=== PATIENT | female | born 1930 | race Caucasian/White ===

== ENCOUNTER 2017-05-05 14:21 | Inpatient (IN) ==
--- NOTE | 2017-05-05 14:48 | Diag Imaging Result Doc PS360 ---
EXAM: CHEST-PORTABLE HISTORY: seizure TECHNIQUE: Portable upright AP COMPARISON: 05/09/2016 FINDINGS: The lungs are well expanded. The heart is not enlarged. Mild increased interstitial markings may be fibrosis. No consolidation. No pleural effusions identified. Old injury to the left clavicle. IMPRESSION: Mild increased interstitial markings believed to be fibrosis Electronically signed by Fausto Young 05/05/2017 2:46 PM
[2017-05-05 14:59] LABS: BASO% 0.5 % (0.0-0.8); EOS# 0.02 X1000 (0.0-0.7); EOS% 0.5 % (0.0-10.0); HEMATOCRIT 33.3 % (37.0-47.0); LYMPH# 1.73 X1000 (1.2-3.4); LYMPH% 46.1 % (20.5-51.1); MANUAL DIFF NEEDED? NO; MCV 96.8 FL (81-99); MONO# 0.54 X1000 (0.11-0.59); MONO% 14.4 % (1.7-9.3); MPV 11.3 FL (7.4-10.4); NEUT% 38.5 % (42.2-75.2); PLT 281 X1000 (130-400); RBC 3.44 XMIL (4.2-5.4)
[2017-05-05 15:01] LABS: URINE MICRO REVIEW NEEDED? NO; URINE SOURCE CATH
[2017-05-05 15:06] LABS: INR 1.02; PROTIME 10.7 Seconds (9.2-11.7)
[2017-05-05 15:07] LABS: BILIRUBIN URINE NEGATIVE (NEGATIVE); BLOOD URINE NEGATIVE (NEGATIVE); COLOR YELLOW; GLUCOSE URINE NEGATIVE (NEGATIVE); LEUKOCYTES URINE SMALL (NEGATIVE); NITRITE URINE POSITIVE (NEGATIVE); PH URINE 6.5; PROTEIN URINE TRACE mg/dL (NEGATIVE); SP GRAVITY URINE 1.018; TURBIDITY URINE HAZY (CLEAR); UR EPITHELIAL CELLS <10 /HPF (<10); URINE BACTERIA 4+ /HPF; URINE RBC <10 /HPF (<10); URINE WBC <10 /HPF (<10); UROBILINOGEN URINE NORMAL (NORMAL)
[2017-05-05 15:14] LABS: ALBUMIN 4.4 g/dL (3.5-5.0); CALCIUM 9.5 mg/dL (8.8-10.2); MAGNESIUM 1.8 mg/dL (1.5-2.7); POTASSIUM 3.9 mmol/L (3.5-5.1); TOTAL BILIRUBIN 0.35 mg/dL (0.20-1.00); TOTAL PROTEIN 7.8 g/dL (6.3-8.3)
[2017-05-05 15:17] LABS: PTT 18.6 Seconds (22.0-36.0)
--- NOTE | 2017-05-05 15:45 | Diag Imaging Result Doc PS360 ---
EXAM : HEAD/C-SPINE W/O CONTRAST HISTORY: head injury/pain TECHNIQUE: CT brain without. CT cervical spine without. COMPARISON: Brain is compared 05/09/2016 FINDINGS: Head: No parenchymal hemorrhage. No epidural or subdural hematoma. No subarachnoid hemorrhage. No mass identified on this noncontrasted exam. No hydrocephalus. There are chronic microvascular ischemic changes in addition to atrophy. No sinus opacification. Cervical spine: There is good alignment to the cervical spine. No precervical soft tissue swelling. No subluxation. No fracture. Mild degenerative changes. The bones are osteopenic. IMPRESSION: Head: No hemorrhage. No injury. Cervical spine: No acute fracture. Electronically signed by Fausto Young 05/05/2017 3:42 PM
--- NOTE | 2017-05-05 17:54 | PROVIDER DOCUMENTATION ---
This chart was entered by Yadi Hernandez Scribe, acting as scribe for Babatunde Monroy MD. HPI-Neurological Disorder - General Stated Complaint: seizure Time Seen by Provider: 05/05/17 14:27 Source: patient Allergies/Adverse Reactions: Patient Allergies Allergy/AdvReac Type Severity Reaction Status Date / Time No Known Allergies Allergy Verified 05/05/17 14:40 Home Medications: Home Medication List Medication Instructions Recorded Confirmed Last Taken Type NK [No Home Medications] 05/05/17 05/05/17 Unknown History - History of Present Illness-Neuro Nature of Presenting Problem: 86 yo F presents to the ER with complaint of possible seizure like activity. Pt does not remember anything from incident. Pt states she has a hx of " passing out". Only complaint pt has is neck pain. Witnessed seizure like activity, bystanders report pt was post-ictal for 6-7 minutes. Onset/Duration: reports: just prior to arrival Context: reports: seizure activity Associated Symptoms: reports: seizures - Seizure First time to have a seizure?: Yes Witnessed seizure?: Yes Post-ictal Symptoms: reports: confusion Review of Systems - Adult - REVIEW OF SYSTEMS - ADULT Constitutional: denies: chills, fever Eyes: reports: no symptoms reported Ears, Nose, Mouth & Throat: reports: no symptoms reported Cardiovascular: denies: chest pain, palpitations Respiratory: denies: cough, shortness of breath Gastrointestinal: denies: diarrhea, nausea, vomiting Genitourinary: reports: no symptoms reported Musculoskeletal: reports: joint pain, neck pain Integumentary: reports: no symptoms reported Neurological: reports: seizure. denies: dizziness/vertigo Psychiatric: reports: no symptoms reported Endocrine: reports: no symptoms reported Hematologic/Lymphatic: reports: no symptoms reported Allergic/Immunologic: reports: no symptoms reported All Other Systems: Reviewed and Negative Past History - Adult - PAST MEDICAL HISTORY-ADULT Review of Records: reports: Nursing Assessment Review, Medications Reviewed Cardiovascular: reports: HTN - IMMUNIZATION STATUS Childhood Immunizations: See Nurse Assessment Flu Vaccine: See Nurse Assessment Physical Exam- Neurological - Physical Exam-Neuro Initial Vital Signs Reviewed: Yes General Appearance: alert, no apparent distress Eye Exam: bilateral eye: normal inspection, PERRL, EOMI HENMT: normocephalic/atraumatic, normal ENT inspection, TMs normal, pharynx normal Head Injury: no evidence of injury. 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 Exam: normal hearing, normal speech, PERRL Motor/Sensory: no motor deficit, no sensory deficit, no pronator drift Neurologic: grossly normal, no motor/sensory deficits Integumentary: normal color, warm/dry Psych/Mental Status: normal mood/affect, normal thought content, normal thought process, oriented x 3 Progress - PLAN OF CARE/RESULTS Progress/Plan/Lab Results: Vital Signs - 8 hr 05/05/17 14:31 05/05/17 15:49 05/05/17 17:23 Temperature 97.8 F Pulse Rate 72 80 75 Respiratory Rate 15 15 28 H Blood Pressure 121/44 129/62 144/60 O2 Sat by Pulse Oximetry 98 97 93 L Laboratory Results - last 24 hr 05/05/17 05/05/17 05/05/17 14:34 14:34 14:34 WBC 3.75 L RBC 3.44 L Hgb 11.0 L Hct 33.3 L MCV 96.8 MCH 32.0 H MCHC 33.0 RDW Std Deviation 13.4 Plt Count 281 MPV 11.3 H Neut % (Auto) 38.5 L Lymph % (Auto) 46.1 Foard % (Auto) 14.4 H Eos % (Auto) 0.5 Baso % (Auto) 0.5 Neut # (Auto) 1.44 Lymph # (Auto) 1.73 Foard # (Auto) 0.54 Eos # (Auto) 0.02 Baso # (Auto) 0.02 PT INR PTT (Actin FS) D-Dimer 1.59 H Sodium 135 L Potassium 3.9 Chloride 95 L Carbon Dioxide 26 Anion Gap 14 BUN 27 H Creatinine 1.3 H Estimated GFR/1.73 m2 39 BUN/Creatinine Ratio 21 Glucose 120 H Calculated Osmolality 276 Calcium 9.5 Magnesium 1.8 Total Bilirubin 0.35 AST 20 ALT 16 Alkaline Phosphatase 49 Creatine Kinase 144 Troponin T Hhw-I-Ygzmyyedksg Pept Total Protein 7.8 Albumin 4.4 Globulin 3.4 Albumin/Globulin Ratio 1.3 Urine Source Urine Color Urine Turbidity Urine pH Ur Specific [place] Urine Protein Ur Glucose (Stick) Ur Ketones (Stick) Urine Blood Urine Nitrite Urine Bilirubin Urobilinogen Dipstick Urine Leukocytes Urine WBC (Auto) Urine RBC (Auto) U Epithel Cells (Auto) Urine Bacteria (Auto) 05/05/17 05/05/17 05/05/17 14:34 14:34 14:34 WBC RBC Hgb Hct MCV MCH MCHC RDW Std Deviation Plt Count MPV Neut % (Auto) Lymph % (Auto) Foard % (Auto) Eos % (Auto) Baso % (Auto) Neut # (Auto) Lymph # (Auto) Foard # (Auto) Eos # (Auto) Baso # (Auto) PT 10.7 INR 1.02 PTT (Actin FS) 18.6 L D-Dimer Sodium Potassium Chloride Carbon Dioxide Anion Gap BUN Creatinine Estimated GFR/1.73 m2 BUN/Creatinine Ratio Glucose Calculated Osmolality Calcium Magnesium Total Bilirubin AST ALT Alkaline Phosphatase Creatine Kinase Troponin T < 0.010 Xsq-Y-Qxwjalbiixs Pept 154 Total Protein Albumin Globulin Albumin/Globulin Ratio Urine Source Urine Color Urine Turbidity Urine pH Ur Specific [place] Urine Protein Ur Glucose (Stick) Ur Ketones (Stick) Urine Blood Urine Nitrite Urine Bilirubin Urobilinogen Dipstick Urine Leukocytes Urine WBC (Auto) Urine RBC (Auto) U Epithel Cells (Auto) Urine Bacteria (Auto) 05/05/17 14:51 WBC RBC Hgb Hct MCV MCH MCHC RDW Std Deviation Plt Count MPV Neut % (Auto) Lymph % (Auto) [place]oard % (Auto) Eos % (Auto) Baso % (Auto) Neut # (Auto) Lymph # (Auto) [place]oard # (Auto) Eos # (Auto) Baso # (Auto) PT INR PTT (Actin FS) D-Dimer Sodium Potassium Chloride Carbon Dioxide Anion Gap BUN Creatinine Estimated GFR/1.73 m2 BUN/Creatinine Ratio Glucose Calculated Osmolality Calcium Magnesium Total Bilirubin AST ALT Alkaline Phosphatase Creatine Kinase Troponin T Fwt-G-Lukfe[place]agup Pept Total Protein Albumin Globulin Albumin/Globulin Ratio Urine Source CATH Urine Color YELLOW Urine Turbidity HAZY Urine pH 6.5 Ur Specific [place] 1.018 Urine Protein TRACE A Ur Glucose (Stick) NEGATIVE Ur Ketones (Stick) NEGATIVE Urine Blood NEGATIVE Urine Nitrite POSITIVE A Urine Bilirubin NEGATIVE Urobilinogen Dipstick NORMAL Urine Leukocytes SMALL A Urine WBC (Auto) <10 Urine RBC (Auto) <10 U Epithel Cells (Auto) <10 Urine Bacteria (Auto) 4+ Orders Category Date Time Status Admit - [facility] Routine AdmDCTranf 05/05/17 17:48 Ordered Activity - Bed Rest with BRP ORDERED Care 05/05/17 17:48 Active Call Admitting on Arrival AT ADMISSION Care 05/05/17 17:48 Active Cardiac Monitoring DIRECTED Care 05/05/17 14:26 Active Neurological Check Q4H Care 05/05/17 17:49 Active Saline Loc DIRECTED Care 05/05/17 17:48 Active Saline Loc NOW Care 05/05/17 14:26 Active Vital Signs Order ROUTINE Care 05/05/17 17:48 Active Z-Document. for Tele Applied ORDERED Care 05/05/17 17:49 Active Heart Healthy Diet Diet 05/05/17 17:49 Active Regular Diet Diet 05/05/17 17:20 Completed ANGIOGRAM/PULMONARY ARTERIES [CT] Stat Exams 05/05/17 15:56 Ordered CHEST-PORTABLE [RAD] Stat Exams 05/05/17 14:34 Completed HEAD/C-SPINE W/O CONTRAST [CT] Stat Exams 05/05/17 14:27 Completed CBC WITH ELECTRONIC DIFF [HEME] Stat Lab 05/05/17 14:34 Completed CK PROFILE [SP CHEM] Stat Lab 05/05/17 14:34 Completed COMPREHENSIVE METABOLIC PANEL [CHEM] Stat Lab 05/05/17 14:34 Completed D-DIMER [CHEM] Stat Lab 05/05/17 14:34 Completed MAGNESIUM [CHEM] Stat Lab 05/05/17 14:34 Completed PRO B-NATRIURETIC PEPTIDE Stat Lab 05/05/17 14:34 Completed PROTIME WITH INR [COAG] Stat Lab 05/05/17 14:34 Completed PTT [COAG] Stat Lab 05/05/17 14:34 Completed TROPONIN T Stat Lab 05/05/17 14:34 Completed URINALYSIS [URINALYSIS] Stat Lab 05/05/17 14:51 Completed Oxygen Device Routine Oth 05/05/17 17:49 Active Telemetry [OM.EQ] Routine Oth 05/05/17 17:48 Active EKG [EKG] Stat Ther 05/05/17 14:26 Ordered Transfer/Admit Order [TRANSFER] Routine Transfer 05/05/17 17:50 Ordered Laboratory Tests 05/05/17 05/05/17 05/05/17 14:34 14:34 14:34 WBC 3.75 L RBC 3.44 L Hgb 11.0 L Hct 33.3 L MCV 96.8 MCH 32.0 H MCHC 33.0 RDW Std Deviation 13.4 Plt Count 281 MPV 11.3 H Neut % (Auto) 38.5 L Lymph % (Auto) 46.1 Foard % (Auto) 14.4 H Eos % (Auto) 0.5 Baso % (Auto) 0.5 Neut # (Auto) 1.44 Lymph # (Auto) 1.73 Foard # (Auto) 0.54 Eos # (Auto) 0.02 Baso # (Auto) 0.02 PT INR PTT (Actin FS) D-Dimer 1.59 H Sodium 135 L Potassium 3.9 Chloride 95 L Carbon Dioxide 26 Anion Gap 14 BUN 27 H Creatinine 1.3 H Estimated GFR/1.73 m2 39 BUN/Creatinine Ratio 21 Glucose 120 H Calculated Osmolality 276 Calcium 9.5 Magnesium 1.8 Total Bilirubin 0.35 AST 20 ALT 16 Alkaline Phosphatase 49 Creatine Kinase 144 Troponin T Sau-Z-Htfjjmashtv Pept Total Protein 7.8 Albumin 4.4 Globulin 3.4 Albumin/Globulin Ratio 1.3 Urine Source Urine Color Urine Turbidity Urine pH Ur Specific [place] Urine Protein Ur Glucose (Stick) Ur Ketones (Stick) Urine Blood Urine Nitrite Urine Bilirubin Urobilinogen Dipstick Urine Leukocytes Urine WBC (Auto) Urine RBC (Auto) U Epithel Cells (Auto) Urine Bacteria (Auto) 05/05/17 05/05/17 05/05/17 14:34 14:34 14:34 WBC RBC Hgb Hct MCV MCH MCHC RDW Std Deviation Plt Count MPV Neut % (Auto) Lymph % (Auto) Foard % (Auto) Eos % (Auto) Baso % (Auto) Neut # (Auto) Lymph # (Auto) [place]oard # (Auto) Eos # (Auto) Baso # (Auto) PT 10.7 INR 1.02 PTT (Actin FS) 18.6 L D-Dimer Sodium Potassium Chloride Carbon Dioxide Anion Gap BUN Creatinine Estimated GFR/1.73 m2 BUN/Creatinine Ratio Glucose Calculated Osmolality Calcium Magnesium Total Bilirubin AST ALT Alkaline Phosphatase Creatine Kinase Troponin T < 0.010 Eut-W-Egpuqnnwxvr Pept 154 Total Protein Albumin Globulin Albumin/Globulin Ratio Urine Source Urine Color Urine Turbidity Urine pH Ur Specific [place] Urine Protein Ur Glucose (Stick) Ur Ketones (Stick) Urine Blood Urine Nitrite Urine Bilirubin Urobilinogen Dipstick Urine Leukocytes Urine WBC (Auto) Urine RBC (Auto) U Epithel Cells (Auto) Urine Bacteria (Auto) 05/05/17 14:51 WBC RBC Hgb Hct MCV MCH MCHC RDW Std Deviation Plt Count MPV Neut % (Auto) Lymph % (Auto) [place]oard % (Auto) Eos % (Auto) Baso % (Auto) Neut # (Auto) Lymph # (Auto) [place]oard # (Auto) Eos # (Auto) Baso # (Auto) PT INR PTT (Actin FS) D-Dimer Sodium Potassium Chloride Carbon Dioxide Anion Gap BUN Creatinine Estimated GFR/1.73 m2 BUN/Creatinine Ratio Glucose Calculated Osmolality Calcium Magnesium Total Bilirubin AST ALT Alkaline Phosphatase Creatine Kinase Troponin T Fbd-J-Lfrxefpgblp Pept Total Protein Albumin Globulin Albumin/Globulin Ratio Urine Source CATH Urine Color YELLOW Urine Turbidity HAZY Urine pH 6.5 Ur Specific [place] 1.018 Urine Protein TRACE A Ur Glucose (Stick) NEGATIVE Ur Ketones (Stick) NEGATIVE Urine Blood NEGATIVE Urine Nitrite POSITIVE A Urine Bilirubin NEGATIVE Urobilinogen Dipstick NORMAL Urine Leukocytes SMALL A Urine WBC (Auto) <10 Urine RBC (Auto) <10 U Epithel Cells (Auto) <10 Urine Bacteria (Auto) 4+ Result Diagrams: 05/05/17 14:34 05/05/17 14:34 - EKG 1 Time of EKG reading by physician:: 15:21 EKG Read and Signed by:: Ramiro Crenshaw EKG Interpretation (*Must complete 3 of following elements*): Abnormal Rate: 70 Rhythm: sinus rhythm with marked arrhythmia with 1st degree AV with PVCs [place]: left QRS: normal AR Interval: normal ST Wave: normal - XRAY 1 XRAY Study: Chest Impression: See EMR Report (mild increased interstitial markins believed to be fibrosis, per radiologist) - CT/MRI 1 CT Study: Cervical Spine, Head Impression: Normal (Head: no hemorrhage, no injury C-spine: no acute fracture. Per radiologist) - CONSULTS/PCP/HOSPITALIST Notification #1 *Consult/PCP/Hospitalist*: Dr macdonald Time Discussed: 17:51 Consult Disposition: Will see in ED - CHANGE OF SHIFT REPORT (ED Provider) Items Pending: CT/MRI Results (CTA) Departure - Departure Date of Disposition Decision: 05/05/17 Time of Disposition Decision: 17:53 DIAGNOSIS: Syncopal seizure Disposition: ADMITTED INPATIENT 09 Certified Medical Emergency: Emergent Condition: Fair Referrals and Follow-Ups: Nica Givens MD [Primary Care Provider] - - Critical Care Note This patient required my direct & personal management of CC.: No This chart was documented by the indicated scribe, (Yadi Hernandez Scribe) and accurately reflects the services I performed and decisions made by me, Babatunde Monroy MD, as attested by the provider's signature.
[2017-05-05] MEDS ORDERED: NS + KCL 20 MEQ 1,000 ML IV ONE (18:27)
--- NOTE | 2017-05-05 18:57 | Diag Imaging Result Doc PS360 ---
EXAM: ANGIOGRAM/PULMONARY ARTERIES HISTORY: difficulty breathing, left arm swollen TECHNIQUE: CT chest with contrast. Coronal MIPS obtained. Dose reduction protocol. COMPARISON: None. FINDINGS: No pleural effusions. Heart is not enlarged. No thoracic aortic aneurysm or dissection. Normal opacification of the pulmonary arteries and their major branches. There are calcified mediastinal nodes. There is scarring in the apices. A small amount of bronchiectasis is found in the apices. No consolidation. There are several lower thoracic compression fractures. These may not be acute. IMPRESSION: 1.No pulmonary emboli 2.No acute pneumonia 3.Limited images through the upper abdomen reveal a nonspecific hypodense area in the mid liver measuring 1.4 cm. Electronically signed by Fausto Young 05/05/2017 6:54 PM
--- NOTE | 2017-05-05 21:23 | HISTORY AND PHYSICAL ---
CHIEF COMPLAINT: Altered mental status. Syncope. HISTORY OF PRESENT ILLNESS: Ms. Tolbert, 86-year-old white female patient, patient was at her apartment with her [id number]. They both were talking. According to [id number] patient was complaining of headache which was moderate. Patient turned pale. Her eyes rolled back. The patient had a syncopal episode. There was some jerking movement which lasted for few minutes. The patient did pass out for a few minutes and there was possible postictal phase. EMS was called and patient was brought to emergency room. The patient had similar episode 2-3 times in last few weeks. In the patient claims she does not remember a whole lot about those episode. Her headache did not last long. The patient claims her headache was significant today. She did have mild nausea but no vomiting. No diplopia. No typical chest pain, palpitation, orthopnea or PND. No focal numbness, tingling, weakness. When I evaluated the patient, the patient was in her baseline state. No runny nose, stuffy nose, sinus drainage. According to daughter, she does have headache especially when she does not eat her meal or skips her meal which happened today. No neck stiffness. No history of jaw claudication. No dysuria or hematuria. The patient does have polyuria, polydipsia. No major weight loss or weight gain. No heat or cold intolerance. No focal numbness, tingling, weakness. The patient does have arthritic pain in the knee and in the back. The patient does have problem with recent memory. The patient is on Aricept. No further history available at this time. ALLERGIES: No known drug allergy. HOME MEDICATIONS: Includes Aricept 10 mg p.o. daily, the patient is on trazodone, blood pressure medication. I do not have updated list at this time. PAST MEDICAL HISTORY: Significant for hypertension, osteoarthritis, mild memory impairment, the patient had hysterectomy, syncopal episode. PERSONAL HISTORY: Single. Lives by herself. Needs assistance in activities of daily living. REVIEW OF SYSTEMS: As per HPI. Otherwise unobtainable. FAMILY HISTORY: Mother with possible bone cancer. The patient had son with colon cancer. Otherwise, unobtainable. PHYSICAL EXAMINATION: GENERAL: Elderly white female patient, in no acute distress. VITAL SIGNS: Blood pressure 121/44, pulse 72, respirations 15, temperature 97.8 degrees. SKIN: Normal \turgor. No rash or petechiae. HEENT: Head atraumatic, normocephalic. Cobb conjunctivae. Anicteric sclerae. Extraocular muscle movement normal. Fundus cannot be penetrated. Good oral hygiene. No tonsillopharyngeal congestion or exudate. Ears and nose benign. NECK: Supple. No JVD, thyromegaly or lymphadenopathy. CHEST: Bilateral good air entry present. Bibasilar crepitation. No rales. CARDIOVASCULAR: S1 and S2 heard. No gallop or thrill. ABDOMEN: Soft, globular. Bowel sounds present. I cannot appreciate any organomegaly. EXTREMITIES: No cyanosis, clubbing. No acute DVT. Minimal swelling around ankle. 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 Able to move all 4 limbs. No focalities. LAB DATA: Revealed hemoglobin of 11, hematocrit 33.3, WBC count 3.75, platelet count 281,000. PT/INR 1.02, PTT 18.6, D-dimer 1.59. BUN 27, creatinine 1.3. Her urine did reveal nitrite positive and 4+ bacteria suggestive of UTI. ASSESSMENT AND PLAN: The patient admitted with syncope, etiology not known. Will admit the patient. Will put her on telemetry. Do neuro check. Consider carotid Doppler, echocardiogram for further evaluation. I will also check postural blood pressure. Patient had a CT scan of the brain done which was negative for acute changes. There was no hemorrhage and no injury and cervical spine CT was also benign. Other problem includes urinary tract infection. I am going to get urine culture, start patient empirically on IV antibiotics. Chest x-ray did reveal pulmonary fibrosis. Fall precaution. Her other problems include hypertension, mild dementia, osteoarthritis. Overall plan discussed with the patient and she is in agreement and also with the family. cc: MD Gaudencio Alicia MD
[2017-05-05] MEDS: ROCEPHIN 1 GM/NS 1 GM/50 ML IVPB IV SCH (22:16)
[2017-05-06 06:08] LABS: MANUAL DIFF NEEDED? NO
[2017-05-06 06:10] LABS: BASO% 0.3 % (0.0-0.8); EOS# 0.03 X1000 (0.0-0.7); HEMATOCRIT 32.7 % (37.0-47.0); HEMOGLOBIN 10.9 g/dL (12.0-16.0); LYMPH# 1.53 X1000 (1.2-3.4); LYMPH% 49.4 % (20.5-51.1); MCH 31.3 PG (27-31); MCHC 33.3 g/dL (33-37); MONO# 0.58 X1000 (0.11-0.59); MONO% 18.7 % (1.7-9.3); MPV 10.5 FL (7.4-10.4); NEUT% 30.6 % (42.2-75.2); PLT 257 X1000 (130-400); RBC 3.48 XMIL (4.2-5.4)
[2017-05-06 06:25] LABS: HEMOGLOBIN A1C 5.6 % (4.8-6.0)
[2017-05-06 06:30] LABS: ALBUMIN 4.3 g/dL (3.5-5.0); CALCIUM 8.8 mg/dL (8.8-10.2); MAGNESIUM 1.9 mg/dL (1.5-2.7); POTASSIUM 3.7 mmol/L (3.5-5.1); TOTAL BILIRUBIN 0.36 mg/dL (0.20-1.00); TOTAL PROTEIN 7.6 g/dL (6.3-8.3)
--- NOTE | 2017-05-06 07:02 | EKG Report ---
Test Performed on : 05/05/2017 3:21:06 PM Test Reason : Chest Pain Blood Pressure : / mmHG Vent. Rate : 070 BPM Atrial Rate : 070 BPM P-R Int : 220 ms QRS Dur : 098 ms QT Int : 404 ms P-R-T Axes : 070 -37 025 degrees QTc Int : 436 ms Sinus rhythm. with marked sinus arrhythmia. with 1st degree AV block. with occasional premature vent ricular complexes. Left axis deviation Abnormal ECG When compared with ECG of 09-MAY-2016 12:01, premature ventricular complexes. are now present premature atrial complexes. are no longer present Unconfirmed Result
[2017-05-06 07:40] LABS: SED RATE 25 mm/hr (0-20)
[2017-05-06] MEDS: SODIUM CHLORIDE 0.9% INJ SCH (08:48)
[2017-05-06] MEDS: DESYREL PO SCH (08:48)
[2017-05-06] MEDS: ARICEPT PO SCH (08:48)
[2017-05-06] MEDS: PEPCID IV SCH ×2 (08:48→20:55)
[2017-05-06] MEDS: ROCEPHIN 1 GM/NS 1 GM/50 ML IVPB IV SCH (20:55)
[2017-05-06] MEDS: TYLENOL PO PRN (21:07)
--- NOTE | 2017-05-07 04:11 | PROGRESS NOTE ---
DATE: 05/06/2017 Level 3 documentation SUBJECTIVE: 86-year-old white female, was admitted to the hospital on 05/05/2017 for altered mental status and syncope. She has history of dementia. According to [id number], patient was complaining of headache and turning pale, eyes rolled back and passed out. Some jerking movements lasted a few minutes. Emergency room workup was evaluated and this morning, the patient is doing very well, awake. REVIEW OF SYSTEMS: HEENT: No headache. No vision problem. No earache. No sore throat. Neck: No goiter. No lymphadenopathy. No bruit. Cardiopulmonary: No chest pain, shortness of breath, PND, orthopnea. GI: No nausea, vomiting, abdominal pain. : History of hesitancy, frequency. No swelling of legs. No obvious weakness. PAST MEDICAL HISTORY/PAST SURGICAL HISTORY/MEDICINES: Were reviewed. OBJECTIVE: Vital Signs: On examination, she is afebrile and blood pressure is 118/50. Room air pulse oximetry 96%. I's and O's are even. HEENT: Within normal limits. Neck: Supple. No lymphadenopathy. No goiter. Chest: Bilateral air entry. No rales, no wheezing. Heart: Sounds are regular. Abdomen: Belly is soft, nontender. Good bowel sounds. No masses palpable. Extremities: No peripheral edema, cyanosis. Neurologic: No obvious neurological deficits. INVESTIGATIONS: CBC: White cell count 3.1, hematocrit 32, platelets 257,000. SMA 7: Sodium 133, potassium 3.7, BUN 24, creatinine 1.3, glucose 105. Urinalysis positive for infection. Urine cultures with gram-negative rods. CT pulmonary angiogram: No pulmonary emboli. Benign cyst in the liver 1.4 cm. Chest x-ray: Mild increased markings with fibrosis. CT head and cervical spine: No acute fracture. EKG: Normal sinus. Nothing acute for ischemia. ASSESSMENT AND PLAN: 1. Syncope. Etiology to be determined. We will schedule the carotid Dopplers. 2. Orthostatic hypotension 3. Urinary tract infection. Currently on IV antibiotics. 4. Interstitial fibrosis, stable. 5. Dementia. On Aricept. 6. Continue to monitor on telemetry for syncope. 7. Azotemia. On IV fluids and check the labs in the morning. LEVEL OF DOCUMENTATION: Thirty-five minutes. cc: Gaudencio Givens MD
[2017-05-07] MEDS: TYLENOL PO PRN (05:10)
[2017-05-07 07:31] LABS: CALCIUM 8.9 mg/dL (8.8-10.2); POTASSIUM 4.1 mmol/L (3.5-5.1)
[2017-05-07 07:32] LABS: HEMATOCRIT 32.1 % (37.0-47.0); HEMOGLOBIN 10.7 g/dL (12.0-16.0); MCH 31.9 PG (27-31); MCHC 33.3 g/dL (33-37); MCV 95.8 FL (81-99); MPV 10.8 FL (7.4-10.4); RBC 3.35 XMIL (4.2-5.4)
[2017-05-07] MEDS: ARICEPT PO SCH (09:04)
[2017-05-07] MEDS: PEPCID IV SCH ×2 (09:04→21:35)
[2017-05-07] MEDS: DESYREL PO SCH (09:04)
[2017-05-07] MEDS: SODIUM CHLORIDE 0.9% INJ SCH ×2 (09:05→21:35)
[2017-05-07] MEDS: LOVENOX SUBQ SCH (09:05)
[2017-05-07] MEDS: ROCEPHIN 1 GM/NS 1 GM/50 ML IVPB IV SCH (21:34)
--- NOTE | 2017-05-07 22:45 | PROGRESS NOTE ---
DATE: 05/07/2017 SUBJECTIVE: Patient is doing very well. Eating very well and no syncope. Discussed with the caregiver passing 3 times since last year. REVIEW OF SYSTEMS: None reported. OBJECTIVE: Vital signs: She is afebrile. Vitals are stable. She is not orthostatic. IV fluids were stopped. I's and O's are even. HEENT: Within normal limits. Neck: Supple. Chest: Clear. Heart: Sounds are regular. Belly: Is soft, nontender. Good bowel sounds. No masses palpable. Extremities: No peripheral edema, cyanosis. Neuro: No obvious neurological deficits. INVESTIGATIONS: CBC. White cell count 2.7, hematocrit 32, platelets 234,000. SMA 7 sodium 134, potassium 4.1, chloride 96, BUN 22, creatinine 1.1, glucose 104, calcium 8.9. Liver function tests were normal. Urine cultures positive for Serratia marcescens sensitive to present antibiotics except Macrobid and cefazolin. ASSESSMENT AND PLAN: 1. Syncope etiology to be determined. Will follow up on carotid Dopplers. 2. Possible seizure. Patient caregiver wants EEG . 3. Dementia, stable. 4. Urinary tract infection with Serratia marcescens. Continue on IV ceftriaxone and discussed the plan of care with the family members. LEVEL DOCUMENTATION: Is about 25 minutes. cc: Gaudencio Givens MD
[2017-05-08] MEDS: ARICEPT PO SCH (08:57)
[2017-05-08] MEDS: LOVENOX SUBQ SCH (08:57)
[2017-05-08] MEDS: DESYREL PO SCH (08:57)
[2017-05-08] MEDS: PEPCID IV SCH ×2 (08:57→21:31)
--- NOTE | 2017-05-08 09:00 | Carotid Study ---
DATE: 05/07/2017 PROCEDURE: Carotid duplex imaging. REFERRING PHYSICIAN: Gaudencio Givens MD. INTERPRETING PHYSICIAN: Venessa Monsalve MD. TECH: Renee Jones RVT. INDICATIONS: Dizziness, vertigo, ICD-10 R42. OBSERVED DATA RIGHT LEFT Brachial Blood Pressure Carotid Pulse Bruits: Carotid/Sub DIAGRAM OF ULTRASOUND IMAGING R L RIGHT INT EXT INT EXT LEFT Matthieu (cm/s) Matthieu (cm/s) Subclavian 147/0 Subclavian 130/0 CCA Proximal 76/9 CCA Proximal 83/12 CCA Distal 58/10 CCA Distal 90/13 Bulb 64/11 Bulb 68/8 ICA Proximal 51/6 ICA Proximal 65/7 ICA Mid 91/21 ICA Mid 55/15 ICA Distal 57/12 ICA Distal 46/13 ECA 92/0 ECA 83/0 Vertebral 43/9 Vertebral 62/13 ICA/CCA Ratio 1.20 ICA/CCA Ratio 0.72 % Stenosis 0-39 % Stenosis 0-39 PHYSICIAN INTERPRETATION: Mild atherosclerotic disease of the distal common and internal carotid arteries bilaterally without evidence of a hemodynamically significant lesion in either carotid system. cc: MD Gaudencio Holm MD
[2017-05-08] MEDS: ROCEPHIN 1 GM/NS 1 GM/50 ML IVPB IV SCH (21:31)
[2017-05-08] MEDS: SODIUM CHLORIDE 0.9% INJ SCH (21:31)
--- NOTE | 2017-05-09 06:08 | PROGRESS NOTE ---
DATE: 05/08/2017 SUBJECTIVE: The patient is doing very well, wants to go home. No evidence of syncope. Blood pressure is stable. REVIEW OF SYSTEMS: None reported. PHYSICAL EXAMINATION: Afebrile. Hemodynamics were stable. I's and O's are even. HEENT exam within normal limits. Neck is supple. No lymphadenopathy. No goiter. Chest: Bilateral air entry. Heart sounds are regular. Abdomen: Belly is soft, nontender. Good bowel sounds. Extremities: No peripheral edema. Neurologic: No neurological deficits. DIAGNOSTICS: Carotid Dopplers were negative. EEG studies are pending. ASSESSMENT AND PLAN: 1. Syncope/seizures. It looks like more syncope. Carotid Dopplers were negative. Waiting for EEG. 2. Urinary tract infection with Serratia. Continue IV antibiotics. 3. 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 Rule out cardiac arrhythmia. Discussed with family caregivers. Level of documentation is 15 minutes. cc: Gaudencio Givens MD
[2017-05-09] MEDS: PEPCID IV SCH ×2 (08:26→20:40)
[2017-05-09] MEDS: LOVENOX SUBQ SCH (08:26)
[2017-05-09] MEDS: ARICEPT PO SCH (08:26)
[2017-05-09] MEDS: DESYREL PO SCH (08:26)
--- NOTE | 2017-05-09 19:29 | PROGRESS NOTE ---
DATE: 05/09/2017 SUBJECTIVE: Patient is doing very well. No complaints. Wants to go home. REVIEW OF SYSTEMS: None reported. OBJECTIVE: Vital Signs: Afebrile. Hemodynamics were stable. Not orthostatic. I's and O's even. HEENT Examination: Within normal limits. Neck: Supple. No lymphadenopathy. Chest: Clear to auscultation. Heart: Sounds are regular. Abdomen: Belly is soft, nontender. Good bowel sounds. ASSESSMENT AND PLAN: 1. Syncope: Rule out cardiac arrhythmia. Carotid Dopplers were negative. 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 Follow up on EEG report. 2. Urinary tract infection and Serratia: Continue on IV antibiotics. Repeat labs in the morning. If nothing pans out, consider a 30 day event monitor. We will discuss with the caregiver in the morning. LEVEL OF DOCUMENTATION: 15 minutes. cc: Gaudencio Givens MD
[2017-05-09] MEDS: ROCEPHIN 1 GM/NS 1 GM/50 ML IVPB IV SCH (20:40)
[2017-05-10 07:51] VITALS: BP 158/77
[2017-05-10] MEDS: DESYREL PO SCH (08:36)
[2017-05-10] MEDS: ARICEPT PO SCH (08:36)
[2017-05-10] MEDS: PEPCID IV SCH (08:36)
[2017-05-10] MEDS: SODIUM CHLORIDE 0.9% INJ SCH (08:37)
[2017-05-10] MEDS: LOVENOX SUBQ SCH (08:37)
[2017-05-10] MEDS ORDERED: PNEUMOVAX 23 IM ONE (08:46)
--- NOTE | 2017-05-11 10:58 | DISCHARGE SUMMARY ---
ADMISSION DATE: 05/05/2017 DISCHARGE DATE: 05/10/2017 DISCHARGING DIAGNOSIS: Syncope, etiology to be determined. SECONDARY DIAGNOSES: 1. Hypertension. 2. Dementia. 3. Osteoporosis. 4. Chronic insomnia. 5. Urinary tract infection with Serratia marcescens. BRIEF HISTORY: Please see the H and P that was done by Dr. Faulkner. In brief, she is an 86-year- old, white female, who was admitted to the hospital after passing out at home; questionable as per the caregiver. The patient was evaluated in the ER and was admitted by Dr. Faulkner. During this hospital course, the patient was monitored in telemetry and did not show any evidence of cardiac arrhythmias. Patient was not orthostatic. Initially, she was dry and she was given IV fluids. She also found to have UTI due to Serratia marcescens which is sensitive to all the antibiotics. In the hospital, she was given IV ceftriaxone changed to the p.o. Levaquin at the time of discharge. Patient's caregiver wants EEG which was done. The results are pending. WORKUP DURING THIS HOSPITAL COURSE: 1. Carotid Dopplers were negative. 2. CT pulmonary angiogram: No pulmonary emboli. Liver cyst 1.4 cm. Lower thoracic aortic aneurysm dissection. 3. CT head: No hemorrhage. No injury. 4. CT cervical spine: No acute fracture. LABORATORY DATA: CBC: White cell count 2.7, hematocrit 32, platelets 234,000. SMA-7: Sodium 134, potassium 4.1, chloride 96. BUN 22, creatinine 1.1, glucose 89. Urine cultures positive for Serratia and sensitive to all antibiotics. EEG results are pending. Chest x-ray: Mild interstitial fibrosis. DISCHARGE INSTRUCTIONS: 1. Trazodone 50 mg daily. Lasix was stopped. Hyzaar 50/12.5 daily, Aricept 10 mg daily, Combivent every 8 hours for the shortness of breath, Levaquin 500 daily for 7 days. Follow up on EEG. 2. Arrange outpatient 30 day loop monitor. 3. Follow up in my office in 10 days. cc: Gaudencio Givens MD
--- NOTE | 2017-05-13 17:17 | EEG REPORT ---
DATE: 05/07/2017 EEG: #[id number]. REFERRING PHYSICIAN: Donn Givens MD [employer] OPERATOR: Eve Garcia. BACKGROUND INFORMATION/TECHNIQUE: A digitally recorded EEG is obtained with 1 additional channel for EKG. HISTORY OF PRESENT ILLNESS: This is an 86-year-old female who had dizziness prior to a syncopal event. There was some jerking movement reported. An EEG is ordered to detect evidence of possible seizures. MEDICATIONS: Donepezil. Trazodone. Ceftriaxone. EEG FINDINGS: A posterior dominant alpha rhythm is notably absent. The background consists of mixed alpha, beta and theta range frequencies. Excessive beta frequency is noted diffusely. No definite persistent focal slowing. No definite epileptiform discharges and no seizures seen. Hyperventilation was not performed. Photic stimulation induced a normal photic driving response at multiple frequencies. The patient becomes drowsy, but stage II sleep is not achieved. EKG shows irregular R to R intervals at times and also with some PVCs. IMPRESSION AND RECOMMENDATIONS: Abnormal routine EEG due to: 1. Mild generalized background slowing suggestive of a mild encephalopathy. Generalized slowing is a nonspecific finding that can be seen in processes that diffusely affect the cerebrum, including toxic, metabolic, pharmacologic, post hypoxic or infectious etiologies. 2. Irregular R to R intervals and PVCs noted on the EKG. No epileptiform discharges and no seizures are seen on the current study. This does not rule out an underlying seizure disorder. Excessive beta is usually a medication effect often seen with medications such as benzodiazepines. Clinical correlation is advised. cc: MD Gaudencio Hodge MD [facility]
== END 2017-05-10 09:32 | disposition home health service (06) ==
LOC: ED 14:21 → 3N 18:21
PROVIDERS: ADMIT Internal Medicine; ATTEND Internal Medicine